=== PATIENT | female | born 1990 | race Caucasian/White ===

== ENCOUNTER 2017-03-20 09:50 | Emergency (ER) | payer OTHER ==
--- NOTE | 2017-03-20 10:02 | EDPHY ---
H & P Stated Complaint: Concern she may have another DVT L leg & poss PE Time Seen by Provider: 03/20/17 09:52 HPI/ROS: CHIEF COMPLAINT: Shortness of breath, chest tightness HISTORY OF PRESENT ILLNESS: This patient is a 26 year old female with history of DVT complaining of chest tightness, shortness of breath, and orthostatic lightheadedness over the last 2- 3 days. Onset of vague chest tightness a few days ago, associated with occasional SOB. When she transitions from sitting to standing, she gets lightheaded. She has been eating and drinking well. Her left calf has felt "knotted up" for the past week, but this has resolved. When she had the prior DVT, her left calf was very achy for five days, different from the recent sensation. She has been running often, and believes her current calf discomfort may be musculoskeletal in origin. She endorses a sensation of tachycardia. She has a history of DVT one year ago, and was on Eliquis for four months. She has family history of clotting in her father and sister. She visited Dr. Levy for further evaluation and did not have a clotting disorder. She denies swelling or pain in her legs. Her last menstrual period was about 5 weeks ago, which is normal for her. She denies fever, vomiting, diarrhea, or other associated symptoms. REVIEW OF SYSTEMS: A 10 point review of systems was performed and is negative with the exception of the elements mentioned in the history of present illness. - Personal History LMP (Females 10-55): Over 28 Days Ago Current Tetanus Diphtheria and Acellular Pertussis (TDAP): Yes - Medical/Surgical History PMH: DVT. Family history of clotting. Other PMH: DVT. irregular periods - Social History Smoking Status: Never smoked Additional Social History: . Lives in [place]. Works at [employer]. Nonsmoker. - Physical Exam Exam: General Appearance: Alert, pleasant Eyes: Pupils equal and round, no conjunctival pallor or injection ENT, Mouth: Mucous membranes moist Neck: Normal inspection Respiratory: normal RR, Lungs are clear to auscultation Cardiovascular: Regular rate and rhythm Gastrointestinal: Abdomen is soft and non- tender Neurological: A&O, nonfocal, normal gait Skin: Warm and dry, no rash Extremities: Nontender, no pedal edema. No left calf pain or tenderness, negative Emely sign. Psychiatric: Mood and affect normal Constitutional: Initial Vital Signs Temperature (C) 36.5 C 03/20/17 09:53 Heart Rate 68 03/20/17 09:53 Respiratory Rate 18 03/20/17 09:53 Blood Pressure 143/84 H 03/20/17 09:53 O2 Sat (%) 99 03/20/17 09:53 O2 Delivery Mode Room Air Allergies/Adverse Reactions: Penicillins Allergy (Intermediate, Verified 03/20/17 09:52) rash,lips swell Home Medications: Medication Instructions Recorded NK [No Known Home Meds] 03/20/17 Medical Decision Making - Diagnostics EKG Interpretation: EKG interpreted by me reveals normal sinus rhythm, rate 54, LVH. Imaging Results: Imaging Impressions Extremity Venous Study 03/20/17 10:08 Impression: No deep venous thrombosis left leg. Findings and recommendations discussed with Emergency Department physician, KITTY CHAHAL at 10:55 hour, 03/20/2017. Final report concurs with initial preliminary interpretation. Chest X-Ray 03/20/17 11:07 Impression: No acute pulmonary disease. Imaging: Discussed imaging studies w/ scallop cutter Radiologist ED Course/Re-evaluation: 26 year old female presents with 2-3 day history of shortness of breath, chest tightness, and lightheadedness. Vitals are within normal limits. Physical exam reveals no calf pain or tenderness, negative Emely's sign. Lung sounds clear to auscultation bilaterally. Wells criteria scoring is 1.5 due to previous DVT. Heart rate is 68, no recent surgery or immobilization, or clinical signs of DVT. Intermediate risk for PE. Plan for labs including D-dimer. Given h/o LLE DVT and recent sore left calf (now resolved), will check LLE soon. D-dimer negative. Labs otherwise unremarkable. 10:[address] Newman. US left lower extremity negative for DVT. Discussed results with patient. I feel that I can safely exclude pulmonary embolism in this patient. In addition, I do not suspect acute coronary syndrome , given atypical symptoms and young age. Plan to discharge home in good condition. Follow up and return precautions discussed. The patient is comfortable with this plan. Differential Diagnosis: Differential diagnosis includes though it is not limited to pneumonia, pneumothorax, pulmonary embolism, aortic dissection, pericarditis, acute coronary syndrome. - Data Points Laboratory Results: Laboratory Results 03/20/17 10:10 03/20/17 10:10 03/20/17 03/20/17 03/20/17 10:10 10:10 10:10 WBC RBC Hgb Hct MCV MCH MCHC RDW Plt Count MPV Neut % (Auto) Lymph % (Auto) [place] % (Auto) Eos % (Auto) Baso % (Auto) Nucleat RBC Rel Count Absolute Neuts (auto) Absolute Lymphs (auto) Absolute Monos (auto) Absolute Eos (auto) Absolute Basos (auto) Absolute Nucleated RBC Immature Gran % Immature Gran # D-Dimer < 0.27 ug/mLFEU ug/mLFEU (0.00-0.50) Sodium 143 mEq/L mEq/L (134-144) Potassium 4.4 mEq/L mEq/L (3.5-5.2) Chloride 104 mEq/L mEq/L (97-110) Carbon Dioxide 24 mEq/l mEq/l (22-31) Anion Gap 15 mEq/L mEq/L (8-16) BUN 17 mg/dL mg/dL (7-23) Creatinine 0.8 mg/dL mg/dL (0.6-1.0) Estimated GFR > 60 Glucose 87 mg/dL mg/dL (70-100) Calcium 10.2 mg/dL mg/dL (8.5-10.4) Beta HCG, Qual NEGATIVE 03/20/17 10:10 WBC 4.94 10^3/uL 10^3/uL (3.80-9.50) RBC 4.45 10^6/uL 10^6/uL (4.18-5.33) Hgb 14.1 g/dL g/dL (12.6-16.3) Hct 43.2 % % (38.0-47.0) MCV 97.1 fL fL (81.5-99.8) MCH 31.7 pg pg (27.9-34.1) MCHC 32.6 g/dL g/dL (32.4-36.7) RDW 12.2 % % (11.5-15.2) Plt Count 212 10^3/uL 10^3/uL (150-400) MPV 11.2 fL fL (8.7-11.7) Neut % (Auto) 57.5 % % (39.3-74.2) Lymph % (Auto) 33.2 % % (15.0-45.0) [place] % (Auto) 6.7 % % (4.5-13.0) Eos % (Auto) 1.2 % % (0.6-7.6) Baso % (Auto) 1.2 % % (0.3-1.7) Nucleat RBC Rel Count 0.0 % % (0.0-0.2) Absolute Neuts (auto) 2.84 10^3/uL 10^3/uL (1.70-6.50) Absolute Lymphs (auto) 1.64 10^3/uL 10^3/uL (1.00-3.00) Absolute Monos (auto) 0.33 10^3/uL 10^3/uL (0.30-0.80) Absolute Eos (auto) 0.06 10^3/uL 10^3/uL (0.03-0.40) Absolute Basos (auto) 0.06 10^3/uL 10^3/uL (0.02-0.10) Absolute Nucleated RBC 0.00 10^3/uL 10^3/uL (0-0.01) Immature Gran % 0.2 % % (0.0-1.1) Immature Gran # 0.01 10^3/uL 10^3/uL (0.00-0.10) D-Dimer Sodium Potassium Chloride Carbon Dioxide Anion Gap BUN Creatinine Estimated GFR Glucose Calcium Beta HCG, Qual Departure - Departure Disposition: Home, Routine, Self-Care Clinical Impression: Chest tightness Condition: Good Instructions: Chest Pain (ED), Dyspnea (ED), Lightheadedness (ED) Additional Instructions: 1. Follow up with your primary care provider next week for continued evaluation. 2. Return to the emergency department for worsening chest pain, shortness of breath, dizziness, or other worsening of condition. Referrals: Margie Hung MD [Medical Doctor] - As per Instructions Report Scribed for: Kitty Chahal Report Scribed by: Katya Garzon Date of Report: 03/20/17 Time of Report: 10:02 Physician Review and Approval Statement: 03/20/17 10:02 Portions of this note were transcribed by a medical secretary teacher. I personally performed a history, physical exam, medical decision making, and confirmed accuracy of information the transcribed note.
[2017-03-20 10:19] LABS: % IMMATURE GRANULYOCYTES 0.2 % (0.0-1.1); ABSOLUTE IMMATURE GRANULOCYTES 0.01 10^3/uL (0.00-0.10); ADD DIFF? NO; ADD MORPH? NO; ADD SCAN? NO; ATYPICAL LYMPHOCYTE FLAG 30 (0-99); FRAGMENT RBC FLAG 0 (0-99); HEMATOCRIT 43.2 % (38.0-47.0); HEMOGLOBIN 14.1 g/dL (12.6-16.3); LEFT SHIFT FLG 0 (0-99); LIPEMIA HEMOLYSIS FLAG 80 (0-99); MEAN CELL HEMOGLOBIN 31.7 pg (27.9-34.1); MEAN CELL HEMOGLOBIN CONCENTR. 32.6 g/dL (32.4-36.7); MEAN CELL VOLUME 97.1 fL (81.5-99.8); MEAN PLATELET VOLUME 11.2 fL (8.7-11.7); PLATELET CLUMPS FLAG 0 (0-99); PLATELET COUNT 212 10^3/uL (150-400); RED BLOOD CELL COUNT 4.45 10^6/uL (4.18-5.33); RED CELL DISTRIBUTION WIDTH 12.2 % (11.5-15.2)
[2017-03-20 10:40] LABS: ANION GAP 15 mEq/L (8-16); CALCIUM 10.2 mg/dL (8.5-10.4); CARBON DIOXIDE 24 mEq/l (22-31); CHLORIDE 104 mEq/L (97-110); CREATININE 0.8 mg/dL (0.6-1.0); GLOMERULAR FILTRATION RATE > 60; GLUCOSE 87 mg/dL (70-100); POTASSIUM 4.4 mEq/L (3.5-5.2); SODIUM 143 mEq/L (134-144)
[2017-03-20 12:04] VITALS: BP 121/80; PULSE 74; RESP 16; TEMP 98.4; O2SAT 98
--- NOTE | 2017-03-22 09:29 | CPEKG ---
Heart Rate: 54 RR Interval: 1111 P-R Interval: 172 QRSD Interval: 98 QT Interval: 444 QTC Interval: 421 P [place]: 51 QRS [place]: 85 T Wave [place]: 4 EKG Severity - ABNORMAL ECG - EKG Impression: SINUS RHYTHM EKG Impression: PROBABLE LEFT VENTRICULAR HYPERTROPHY Electronically Signed By: Marc Cuevas 22-Mar-2017 15:09:43
== END 2017-03-20 12:03 | disposition home or self-care (01) ==
DX: R07.89 Other chest pain (principal)